=== PATIENT | female | born 1940 | race Caucasian/White ===

== ENCOUNTER 2017-04-27 08:13 | Emergency (ER) | payer MEDICARE, BC ==
[2017-04-27] MEDS ORDERED: Sodium Chloride 0.9% 10 ML Syringe FLUSH PRN (08:27)
[2017-04-27] MEDS ORDERED: Sodium Chloride 0.9% 2.5 ML Syringe FLUSH PRN (08:27)
[2017-04-27] MEDS ORDERED: Ondansetron 4 MG/2 ML SDV IVPUSH ONE (08:28)
[2017-04-27] MEDS ORDERED: Morphine 2 MG/ML Syringe IVPUSH ONE (08:28)
--- NOTE | 2017-04-27 08:39 | EDM.PDOC ---
ED HPI GENERAL MEDICAL PROBLEM - General Chief Complaint: Lower Extremity Injury/Pain Stated Complaint: ALL OVER PAIN Time Seen by Provider: 04/27/17 08:20 Source of Information: Reports: Patient History Limitations: Reports: No Limitations - History of Present Illness INITIAL COMMENTS - FREE TEXT/NARRATIVE: History of present illness: []Patient was sitting in a recliner chair and pushed back to recline further and felt sudden pain in her right hip. She denies any previous hip surgery or feeling any pop prior to the pain. Patient also denies any numbness or tingling , low back pain or any other injuries. Review of systems: As per history of present illness and below otherwise all systems reviewed and negative. Past medical history: As per history of present illness and as reviewed below otherwise noncontributory. Surgical history: As per history of present illness and as reviewed below otherwise noncontributory. Social history: No reported history of drug or alcohol abuse. Family history: As per history of present illness and as reviewed below otherwise noncontributory. Physical exam: General: Well developed, well nourished in NAD HEENT: Atraumatic, normocephalic, pupils reactive, negative for conjunctival pallor or scleral icterus, mucous membranes moist, throat clear, neck supple, nontender, trachea midline. Lungs: Clear to auscultation, breath sounds equal bilaterally, chest nontender. Heart: S1S2, regular, negative for clicks, rubs, or JVD. Abdomen: Soft, nondistended, nontender. Negative for masses or hepatosplenomegaly. Negative for costovertebral tenderness. Pelvis: Stable nontender. Genitourinary: Deferred. Rectal: Deferred. Extremities: Atraumatic, negative for cords or calf pain. Neurovascular unremarkable. Neuro: Awake, alert, oriented. Cranial nerves II through XII unremarkable. Cerebellum unremarkable. Motor and sensory unremarkable throughout. Exam nonfocal. Diagnostics: []Pelvis and right hip x-ray negative for fracture Therapeutics: []Pain meds given Impression: []Right hip strain Plan: []Flexeril and tramadol follow-up with PMD ice and/or heat to hip return to ER if symptoms worsen or change Definitive disposition and diagnosis as appropriate pending reevaluation and review of above. Right Hip Pain Score (Numeric/FACES): 10 - Related Data Allergies Allergy/AdvReac Type Severity Reaction Status Date / Time Sulfa (Sulfonamide Allergy Hives Verified 04/27/17 08:25 Antibiotics) Home Meds: Home Meds Cyclobenzaprine [Flexeril] 10 mg PO BID PRN #16 tablet 04/27/17 [Rx] Furosemide [Lasix] 20 mg PO DAILY 04/27/17 [History] Metoprolol Succinate [Toprol XL] 150 mg PO DAILY 04/27/17 [History] Rivaroxaban [Xarelto] 20 mg PO DAILY 04/27/17 [History] traMADol [Ultram] 50 mg PO Q8H PRN #18 tablet 04/27/17 [Rx] Past Medical History Cardiovascular History: Reports: Afib, Hypertension - Infectious Disease History Infectious Disease History: Reports: Chicken Pox, Measles, Mumps - Past Surgical History HEENT Surgical History: Reports: Other (See Below) Other HEENT Surgeries/Procedures: eye surgery GI Surgical History: Reports: Bariatric Procedure Social & Family History - Family History Family Medical History: Noncontributory - Tobacco Use Smoking Status *Q: Never Smoker - Recreational Drug Use Recreational Drug Use: No Review of Systems - Review of Systems Review Of Systems: See Below (See history of present illness) ED EXAM, GENERAL - Physical Exam Exam: See Below (See history of present illness) Course - Vital Signs Last Recorded V/S: Last Vital Signs Temp 36.4 C 04/27/17 09:40 Pulse 79 04/27/17 11:02 Resp 18 04/27/17 11:02 BP 123/78 04/27/17 11:02 Pulse Ox 91 L 04/27/17 11:02 - Orders/Labs/Meds Orders: Active Orders 24 hr Category Date Time Status Sodium Chloride 0.9% [Saline Flush] Med 04/27/17 08:27 Active 10 ml FLUSH ASDIRECTED PRN Sodium Chloride 0.9% [Saline Flush] Med 04/27/17 08:27 Active 2.5 ml FLUSH ASDIRECTED PRN Saline Lock Insert [OM.PC] Stat Oth 04/27/17 08:27 Ordered Medication Orders Sodium Chloride (Saline Flush) 10 ml FLUSH ASDIRECTED PRN PRN Reason: Keep Vein Open Last Admin: 04/27/17 08:46 Dose: 10 ml Sodium Chloride (Saline Flush) 2.5 ml FLUSH ASDIRECTED PRN PRN Reason: Keep Vein Open Last Admin: 04/27/17 08:46 Dose: 2.5 ml Meds: Medications Generic Name Dose Route Start Last Admin Trade Name Freraul PRN Reason Stop Dose Admin Sodium Chloride 10 ml 04/27/17 08:27 04/27/17 08:46 Saline Flush FLUSH 10 ml ASDIRECTED PRN Administration Keep Vein Open Sodium Chloride 2.5 ml 04/27/17 08:27 04/27/17 08:46 Saline Flush FLUSH 2.5 ml ASDIRECTED PRN Administration Keep Vein Open Discontinued Medications Generic Name Dose Route Start Last Admin Trade Name Freq PRN Reason Stop Dose Admin Hydromorphone HCl 0.5 mg 04/27/17 09:06 04/27/17 09:12 Dilaudid IVPUSH 04/27/17 09:07 0.5 mg ONETIME ONE Administration Hydromorphone HCl 0.5 mg 04/27/17 09:33 04/27/17 09:43 Dilaudid IVPUSH 04/27/17 09:34 0.5 mg ONETIME ONE Administration Morphine Sulfate 4 mg 04/27/17 08:28 04/27/17 08:47 Morphine IVPUSH 04/27/17 08:29 4 mg ONETIME ONE Administration Ondansetron HCl 4 mg 04/27/17 08:28 04/27/17 08:46 Zofran IVPUSH 04/27/17 08:29 4 mg ONETIME ONE Administration Departure - Departure Time of Disposition: 11:17 Disposition: Home, Self-Care 01 Condition: Good Clinical Impression: Strain of right hip Qualifiers: Encounter type: initial encounter Qualified Code(s): S76.011A - Strain of muscle, fascia and tendon of right hip, initial encounter - Discharge Information Prescriptions: Cyclobenzaprine [Flexeril] 10 mg PO BID PRN #16 tablet PRN Reason: Pain traMADol [Ultram] 50 mg PO Q8H PRN #18 tablet PRN Reason: Pain Referrals: PCP,Unknown [Primary Care Provider] - Forms: ED Department Discharge Additional Instructions: The following information is given to patients seen in the emergency department who are being discharged to home. This information is to outline your options for follow-up care. We provide all patients seen in our emergency department with a follow-up referral. The need for follow-up, as well as the timing and circumstances, are variable depending upon the specifics of your emergency department visit. If you don't have a primary care physician on staff, we will provide you with a referral. We always advise you to contact your personal physician following an emergency department visit to inform them of the circumstance of the visit and for follow-up with them and/or the need for any referrals to a consulting specialist. The emergency department will also refer you to a specialist when appropriate. This referral assures that you have the opportunity for follow-up care with a specialist. All of these measure are taken in an effort to provide you with optimal care, which includes your follow-up. Under all circumstances we always encourage you to contact your private physician who remains a resource for coordinating your care. When calling for follow-up care, please make the office aware that this follow-up is from your recent emergency room visit. If for any reason you are refused follow-up, please contact the [facility] Emergency Department at and asked to speak to the emergency department charge nurse. Tramadol Flexeril as directed follow-up with PMD return if symptoms worsen or change [facility] [address] [place] [address] - My Orders Last 24 Hours: My Active Orders 04/27/17 08:27 Sodium Chloride 0.9% [Saline Flush] 10 ml FLUSH ASDIRECTED PRN Sodium Chloride 0.9% [Saline Flush] 2.5 ml FLUSH ASDIRECTED PRN Saline Lock Insert [OM.PC] Stat - Assessment/Plan Last 24 Hours: My Active Orders 04/27/17 08:27 Sodium Chloride 0.9% [Saline Flush] 10 ml FLUSH ASDIRECTED PRN Sodium Chloride 0.9% [Saline Flush] 2.5 ml FLUSH ASDIRECTED PRN Saline Lock Insert [OM.PC] Stat
[2017-04-27] MEDS ORDERED: HYDROmorphone 2 MG/ML Syringe IVPUSH ONE ×2 (09:06→09:33)
--- NOTE | 2017-04-27 11:03 | CR ---
EXAMINATION: Pelvis and right hip HISTORY: Pain COMPARISON: None TECHNIQUE: AP pelvis and 2 views of the right hip FINDINGS: There is no acute osseous abnormality, dislocation, or fracture. Severe joint space narrowi ng is noted within the hips bilaterally. Subchondral cystic change, sclerosis and prominent osteophyt e formation is noted within the left hip and less so within the right hip. Iliopectineal lines are in tact SI joints are symmetric. IMPRESSION: 1. 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
[2017-04-27] MEDS ORDERED: Cyclobenzaprine 10 MG Tab PO ONE (11:21)
[2017-04-27 11:33] VITALS: BP 143/76
== END 2017-04-27 11:59 | disposition home or self-care (01) ==
LOC: MW.ED 08:13
DX: S76.011A Strain of muscle, fascia and tendon of right hip, initial encounter (principal); I10 Essential (primary) hypertension; Z88.2 Allergy status to sulfonamides; Z79.899 Other long term (current) drug therapy; X50.1XXA Overexertion from prolonged static or awkward postures, initial encounter
CPT/HCPCS: 73502; 96374; 96375; 99284; A9270; J1170; J2270; J2405; 99283

== ENCOUNTER 2018-11-07 14:53 | Emergency (ER) | payer MEDICARE, BC ==
[2018-11-07] MEDS ORDERED: Ondansetron 4 MG/2 ML SDV IVPUSH ONE (15:15)
[2018-11-07] MEDS ORDERED: Sodium Chloride 0.9% 1,000 ML IV ONE (15:15)
--- NOTE | 2018-11-07 15:18 | EDM.PDOC ---
ED [facility] GENERAL MEDICAL PROBLEM - General Chief Complaint: Genitourinary Problem Stated Complaint: kidney stone Time Seen by Provider: 11/07/18 15:01 Source of Information: Reports: Patient History Limitations: Reports: No Limitations - History of Present Illness INITIAL COMMENTS - FREE TEXT/NARRATIVE: HISTORY AND PHYSICAL: History of present illness: Patient is a 78-year-old female presents to the ED today with concern for potential kidney stone. Patient states starting yesterday she started having left-sided back pain that radiates to the front. Patient states she has a history of kidney stones and that the pain feels similar to her prior stones. Patient states she's also had urinary frequency but when she is to the bathroom feels like she cannot urinate. She denies burning or pain with urination. Patient expresses some nausea but no vomiting. Patient states the pain comes in "waves." Currently upon interview, patient denies any pain but states that it comes and goes and is currently isn't active. Patient denies fever, chills, chest pain, shortness of breath, or cough. Denies headache, neck stiff ness, change in vision, syncope, or near syncope. Denies vomiting, diarrhea, constipation, or dysuria. Has not noted any blood in urine or stool. Patient has been eating and drinking appropriately. Patient has a history of atrial fibrillation and hypertension. Review of systems: As per history of present illness and below otherwise all systems reviewed and negative. Past medical history: As per history of present illness and as reviewed below otherwise noncontributory. Surgical history: As per history of present illness and as reviewed below otherwise noncontributory. Social history: See social history for further information Family history: As per history of present illness and as reviewed below otherwise noncontributory. Physical exam: Exam is limited due to body habitus. General: Patient is alert, oriented, and in no acute distress. Patient sitting comfortably on exam table. HEENT: Atraumatic, normocephalic, pupils equal and reactive bilaterally, negative for conjunctival pallor or scleral icterus, mucous membranes moist, TMs normal bilaterally, throat clear, neck supple, nontender, trachea midline. No drooling or trismus noted. No meningeal signs. No hot potato voice noted. Lungs: Clear to auscultation, breath sounds equal bilaterally, chest nontender. Heart: S1S2, irregularly irregular and rhythm without overt murmur Abdomen: Morbidly obese, Soft, nondistended, nontender. Negative for masses or hepatosplenomegaly. Negative for costovertebral tenderness. Pelvis: Stable nontender. Genitourinary: Deferred. Rectal: Deferred. Skin: Intact, warm, dry. No lesions or rashes noted. Extremities: Atraumatic, negative for cords or calf pain. Neurovascular unremarkable. Brawny appearance to the bilateral legs from ankle to mid tibia which patient states as per her baseline. Dorsalis pedis and posterior tibial pulses grossly intact bilaterally. Neuro: Awake, alert, oriented. Cranial nerves II through XII unremarkable. Cerebellum unremarkable. Motor and sensory unremarkable throughout. Exam nonfocal. Notes: Dr. Guzman verbally involved in patient care. Voices understanding and is agreeable to plan of care. Denies any further questions or concerns at this time. Diagnostics: CBC, CMP, lipase, UA, EKG, abdominal pelvic CT without contrast Therapeutics: Zofran, saline, rocephin Prescription: Flomax, [place] #20, macrobid Impression: Left ureterolithiasis Left renal calculi Distended gallbladder Plan: 1. Take medications as prescribed. You can also alternate ibuprofen and Tylenol as directed for pain and discomfort. 2. Follow-up with your primary care provider and urologist as discussed. 3. Return to the ED as needed and as discussed. Definitive disposition and diagnosis as appropriate pending reevaluation and review of above. left flank Pain Score (Numeric/FACES): 6 - Related Data Allergies Allergy/AdvReac Type Severity Reaction Status Date / Time Sulfa (Sulfonamide Allergy Hives Verified 11/07/18 15:00 Antibiotics) Home Meds: Home Meds Furosemide 1 tab PO DAILY 11/07/18 [History] Metoprolol Succinate [Toprol Xl] 150 mg PO DAILY 11/07/18 [History] Rivaroxaban [Xarelto] 20 mg PO DAILY 11/07/18 [History] Past Medical History Cardiovascular History: Reports: Afib, Hypertension - Infectious Disease History Infectious Disease History: Reports: Chicken Pox, Measles, Mumps - Past Surgical History HEENT Surgical History: Reports: Other (See Below) Other HEENT Surgeries/Procedures: eye surgery GI Surgical History: Reports: Bariatric Procedure Social & Family History - Family History Family Medical History: Noncontributory - Tobacco Use Smoking Status *Q: Never Smoker - Recreational Drug Use Recreational Drug Use: No ED ROS GENERAL - Review of Systems Review Of Systems: ROS reveals no pertinent complaints other than HPI. ED EXAM, RENAL/ - Physical Exam Exam: See Below (See dictation) Course - Vital Signs Last Recorded V/S: Last Vital Signs Temp 36.1 C 11/07/18 15:00 Pulse 80 11/07/18 15:00 Resp 18 11/07/18 15:00 BP 136/78 11/07/18 16:16 Pulse Ox 95 11/07/18 15:00 - Orders/Labs/Meds Orders: Active Orders 24 hr Category Date Time Status EKG Documentation Completion [RC] STAT Care 11/07/18 15:16 Active CULTURE URINE [RM] Stat Lab 11/07/18 16:05 Received cefTRIAXone [Rocephin in Dextrose,Iso-Osm 1 GM/50 ML] 1 Med 11/07/18 17:04 Ordered gm Premix Bag 1 bag IV ONETIME Medication Orders Ceftriaxone Sodium/Dextrose 1 (gm/ Premix) 50 mls @ 100 mls/hr IV ONETIME ONE Stop: 11/07/18 17:33 Labs: Laboratory Tests 11/07/18 11/07/18 11/07/18 Range/Units 15:21 15:21 16:05 WBC 9.39 (4.0-11.0) K/uL RBC 4.38 (4.30-5.90) M/uL Hgb 13.5 (12.0-16.0) g/dL Hct 42.3 (36.0-46.0) % MCV 96.6 (80.0-98.0) fL MCH 30.8 (27.0-32.0) pg MCHC 31.9 (31.0-37.0) g/dL RDW Std Deviation 48.1 (28.0-62.0) fl RDW Coeff of Elvia 14 (11.0-15.0) % Plt Count 210 (150-400) K/uL MPV 10.20 (7.40-12.00) fL Neut % (Auto) 87.5 H (48.0-80.0) % Lymph % (Auto) 7.1 L (16.0-40.0) % Thurston % (Auto) 4.9 (0.0-15.0) % Eos % (Auto) 0.3 (0.0-7.0) % Baso % (Auto) 0.2 (0.0-1.5) % Neut # (Auto) 8.2 H (1.4-5.7) K/uL Lymph # (Auto) 0.7 (0.6-2.4) K/uL Thurston # (Auto) 0.5 (0.0-0.8) K/uL Eos # (Auto) 0.0 (0.0-0.7) K/uL Baso # (Auto) 0.0 (0.0-0.1) K/uL Nucleated RBC % 0.0 /100WBC Nucleated RBCs # 0 K/uL Sodium 139 (136-145) mmol/L Potassium 4.0 (3.5-5.1) mmol/L Chloride 102 (98-107) mmol/L Carbon Dioxide 25.8 (21.0-32.0) mmol/L BUN 25 H (7.0-18.0) mg/dL Creatinine 1.0 (0.6-1.0) mg/dL Est Cr Clr Drug Dosing 43.07 mL/min Estimated GFR (MDRD) 53.9 ml/min Glucose 153 H (74-106) mg/dL Calcium 9.2 (8.5-10.1) mg/dL Total Bilirubin 0.6 (0.2-1.0) mg/dL AST 15 (15-37) IU/L ALT 18 (14-63) IU/L Alkaline Phosphatase 93 (46-116) U/L Total Protein 7.4 (6.4-8.2) g/dL Albumin 4.0 (3.4-5.0) g/dL Globulin 3.4 (2.6-4.0) g/dL Albumin/Globulin Ratio 1.2 (0.9-1.6) Lipase 74 (73-393) U/L Urine Color YELLOW Urine Appearance SLT CLOUDY Urine pH 5.0 (5.0-8.0) Ur Specific [place] >= 1.030 (1.001-1.035) Urine Protein NEGATIVE (NEGATIVE) mg/dL Urine Glucose (UA) NEGATIVE (NEGATIVE) mg/dL Urine Ketones 40 H (NEGATIVE) mg/dL Urine Occult Blood LARGE H (NEGATIVE) Urine Nitrite NEGATIVE (NEGATIVE) Urine Bilirubin NEGATIVE (NEGATIVE) Urine Urobilinogen 0.2 (<2.0) EU/dL Ur Leukocyte Esterase TRACE H (NEGATIVE) Urine RBC 40-60 (0-2/HPF) Urine WBC 3-5 (0-5/HPF) Ur Epithelial Cells FEW (NONE-FEW) Urine Bacteria FEW (NEGATIVE) Meds: Medications Generic Name Dose Route Start Last Admin Trade Name Freq PRN Reason Stop Dose Admin Ceftriaxone Sodium/Dextrose 1 50 mls @ 100 mls/hr 11/07/18 17:04 gm/ Premix IV 11/07/18 17:33 ONETIME ONE Discontinued Medications Generic Name Dose Route Start Last Admin Trade Name Freq PRN Reason Stop Dose Admin Sodium Chloride 1,000 mls @ 999 mls/hr 11/07/18 15:15 11/07/18 15:33 Normal Saline IV 11/07/18 16:15 999 mls/hr BOLUS ONE Administration Ondansetron HCl 4 mg 11/07/18 15:15 11/07/18 15:34 Zofran IVPUSH 11/07/18 15:16 4 mg ONETIME ONE Administration Departure - Departure Time of Disposition: 17:12 Disposition: Home, Self-Care 01 Clinical Impression: Ureterolithiasis, Renal calculi - Discharge Information Instructions: Kidney Stones, [id number] Referrals: PCP,Unknown [Primary Care Provider] - Forms: ED Department Discharge Additional Instructions: The following information is given to patients seen in the emergency department who are being discharged to home. This information is to outline your options for follow-up care. We provide all patients seen in our emergency department with a follow-up referral. The need for follow-up, as well as the timing and circumstances, are variable depending upon the specifics of your emergency department visit. If you don't have a primary care physician on staff, we will provide you with a referral. We always advise you to contact your personal physician following an emergency department visit to inform them of the circumstance of the visit and for follow-up with them and/or the need for any referrals to a consulting specialist. The emergency department will also refer you to a specialist when appropriate. This referral assures that you have the opportunity for follow-up care with a specialist. All of these measure are taken in an effort to provide you with optimal care, which includes your follow-up. Under all circumstances we always encourage you to contact your private physician who remains a resource for coordinating your care. When calling for follow-up care, please make the office aware that this follow-up is from your recent emergency room visit. If for any reason you are refused follow-up, please contact the Emergency Department at and asked to speak to the emergency department charge nurse. Primary Care [address] [place] [id number] [facility] [address] [place] [id number] [facility] [address] [place] [address] 1. Take medications as prescribed. You can also alternate ibuprofen and Tylenol as directed for pain and discomfort. 2. Follow-up with your primary care provider and urologist as discussed. 3. Return to the ED as needed and as discussed. - My Orders Last 24 Hours: My Active Orders 11/07/18 15:16 EKG Documentation Completion [RC] STAT 11/07/18 16:05 CULTURE URINE [RM] Stat 11/07/18 17:04 cefTRIAXone [Rocephin in Dextrose,Iso-Osm 1 GM/50 ML] 1 gm Premix Bag 1 bag IV ONETIME - Assessment/Plan Last 24 Hours: My Active Orders 11/07/18 15:16 EKG Documentation Completion [RC] STAT 11/07/18 16:05 CULTURE URINE [RM] Stat 11/07/18 17:04 cefTRIAXone [Rocephin in Dextrose,Iso-Osm 1 GM/50 ML] 1 gm Premix Bag 1 bag IV ONETIME
--- NOTE | 2018-11-07 16:51 | CT ---
HISTORY: Left-sided abdominal pain. TECHNIQUE: Noncontrast CT abdomen and pelvis. COMPARISON: No prior. FINDINGS: There are a few fluid density hepatic lesions which are incompletely characterized though may represent cysts. Gallbladder appears mildly distended. Gallbladder would be more optimally evaluated by ultrasound if the patient has symptoms referable to the gallbladder. There is a low-density splenic lesion which is incompletely characterized. Note that the majority of splenic lesions are benign. Adrenal glands are normal. No focal pancreatic abnormality. - There is a punctate intrarenal calculus within the left kidney superiorly, best seen on the coronal images, measuring approximately 2-3 mm in size. Mild dilatation of the left renal collecting system. The distal left ureter is difficult follow though there is a 5 mm calcification along the left posterior aspect of the urinary bladder present along the expected course of the distal most left ureter which may reflect a ureteral calculus. No right-sided renal or ureteral calculus. Minimal perinephric stranding. Urinary bladder is relatively nondistended. Other pelvic calcifications are likely phleboliths. - There is a gastric lap band in place. There is no small bowel obstruction. Colonic diverticulosis without acute diverticulitis. No abdominal aortic aneurysm. No fluid collection or free air. - Scoliosis. Degenerative changes of the spine. Degenerative changes of the hips. - Mild atelectasis or scarring within the lung bases. IMPRESSION: 1. Mild dilatation of the left renal collecting system. The distal left ureter is difficult follow though there is a 5 mm calcification along the left posterior aspect of the urinary bladder present along the expected course of the distal most left ureter which may reflect a ureteral calculus. If clinical findings are equivocal, a CT urogram could be performed to better delineate the course of the distal left ureter. Additional 2-3 mm nonobstructive intrarenal calculus left kidney. 2. Mildly distended gallbladder. 3. Gastric lap band in place. 4. Colonic diverticulosis without diverticulitis. Dictated by Aj Chappell MD @ 11/07/2018 4:48:59 PM Please note that all CT scans at this facility use dose modulation, iterative reconstruction, and/or weight-based dosing when appropriate to reduce radiation dose to as low as reasonably achievable. Dictated by: Aj Chappell MD @ 11/07/2018 16:49:11 (Electronically Signed)
[2018-11-07] MEDS ORDERED: cefTRIAXone 1 GM in Premix Bag 1 BAG IV ONE (17:04)
[2018-11-07 18:13] VITALS: BP 144/72
== END 2018-11-07 18:11 | disposition home or self-care (01) ==
LOC: MW.ED 14:53
DX: N20.2 Calculus of kidney with calculus of ureter (principal); I48.91 Unspecified atrial fibrillation; I10 Essential (primary) hypertension; Z88.2 Allergy status to sulfonamides
CPT/HCPCS: 36415; 74176; 80053; 81001; 83690; 85025; 87086; 93005; 96361; 96365; 96375; 99284; J0696; J2405; J7040

== ENCOUNTER 2018-12-05 19:11 | Emergency (ER) | payer MEDICARE, BC ==
[2018-12-05] MEDS ORDERED: Bacitracin Oint 1 GM U/D Packet TOP ONE (19:23)
[2018-12-05] MEDS ORDERED: Diphtheria,Pertussis(Acell),Tetanus Vaccine 0.5 ML Syringe IM ONE (19:23)
[2018-12-05] MEDS ORDERED: Lidocaine 1% with EPINEPHrine 1:100,000 10 ML MDV INJECT ONE (19:23)
[2018-12-05] MEDS ORDERED: Lidocaine 1% with EPINEPHrine 1:100,000 20 ML MDV ONE (19:30)
--- NOTE | 2018-12-05 19:30 | EDM.PDOC ---
ED HPI GENERAL MEDICAL PROBLEM - General Chief Complaint: Lower Extremity Injury/Pain Stated Complaint: AMBULANCE Time Seen by Provider: 12/05/18 19:15 - History of Present Illness INITIAL COMMENTS - FREE TEXT/NARRATIVE: HISTORY AND PHYSICAL: History of present illness: The patient is a 78 y/o old female with a history of hypertension and chronic A. fib who is on Xarelto and follows with Dr. Aurelio Murillo at [facility] and presents with a laceration to her left lower leg that occurred when she caught the area on a car door getting out of a vehicle to go to the [facility]. Prior to these events she was in her usual state of good health with no systemic complaints and she did not hit the leg she just caught it on the edge of a car door and cut it. Because she is on Xarelto there was a lot of bleeding and she was concerned so ambulance was called and she was brought here for evaluation. She is not sure of her last tetanus shot she has no bony leg pain and actually has no discomfort at the site of the laceration but was only concerned about the bleeding. It is currently not bleeding. A dressing was placed by EMS. Review of systems: As per history of present illness and below otherwise all systems reviewed and negative. Past medical history: As per history of present illness and as reviewed below otherwise noncontributory. Surgical history: As per history of present illness and as reviewed below otherwise noncontributory. Social history: No reported history of drug or alcohol abuse. Family history: As per history of present illness and as reviewed below otherwise noncontributory. Physical exam: HEENT: Atraumatic, normocephalic, negative for conjunctival pallor or scleral icterus, mucous membranes moist, throat clear, neck supple, nontender, trachea midline. Lungs: Clear to auscultation, breath sounds equal bilaterally, chest nontender. Heart: S1S2, regular rate but irregularly irregular rhythm consistent with her A. fib, no overt murmurs, negative for clicks, rubs, or JVD. Abdomen: Soft, nondistended, nontender. Negative for masses or hepatosplenomegaly. NABS Pelvis: Stable nontender. Genitourinary: Deferred. Rectal: Deferred. Extremities: Atraumatic with full range of motion of all extremities and no palpable bony tenderness appreciated all with the exception of the lateral left lower extremity where there is an arrowhead-like laceration measuring 3 x 4 cm without any active bleeding. The laceration extends to the subcutaneous tissue and there is no soft tissue swelling in the surround or erythema and no tenderness, the legs are, negative for cords or calf pain. Neurovascular unremarkable. Neuro: Awake, alert, oriented. Cranial nerves II through XII unremarkable. Cerebellum unremarkable. Motor and sensory unremarkable throughout. Exam nonfocal. Diagnostics: [] Therapeutics: Wound cleansing, lidocaine with epinephrine for suturing, bacitracin and dressing per nursing Procedure note: After the wound was thoroughly cleansed by nursing it was explored and no foreign bodies were appreciated. 1% lidocaine with epinephrine was infused in the area and the skin edges were tacked down using simple interrupted sutures for a total number of # 7 of 4-0 nylon . There were no complications and the patient tolerated the procedure well. Bacitracin and a dressing was applied. The procedure was performed by Lucille Andres the nurse practitioner Impression: Laceration to left lower extremity, history of chronic Xarelto use stable Definitive disposition and diagnosis as appropriate pending reevaluation and review of above. - Related Data Allergies Allergy/AdvReac Type Severity Reaction Status Date / Time Sulfa (Sulfonamide Allergy Hives Verified 12/05/18 19:14 Antibiotics) Home Meds: Home Meds Furosemide 1 tab PO DAILY 11/07/18 [History] Metoprolol Succinate [Toprol Xl] 150 mg PO DAILY 11/07/18 [History] Rivaroxaban [Xarelto] 20 mg PO DAILY 11/07/18 [History] Past Medical History Cardiovascular History: Reports: Afib, Hypertension - Infectious Disease History Infectious Disease History: Reports: Chicken Pox - Past Surgical History HEENT Surgical History: Reports: Other (See Below) Other HEENT Surgeries/Procedures: eye surgery GI Surgical History: Reports: Bariatric Procedure Social & Family History - Family History Family Medical History: Noncontributory - Tobacco Use Smoking Status *Q: Never Smoker - Caffeine Use Caffeine Use: Reports: Coffee, Tea - Recreational Drug Use Recreational Drug Use: No Review of Systems - Review of Systems Review Of Systems: ROS reveals no pertinent complaints other than HPI. ED EXAM, GENERAL - Physical Exam Exam: See Below (See dictation) Course - Vital Signs Last Recorded V/S: Last Vital Signs Temp 36.4 C 12/05/18 19:14 Pulse 94 12/05/18 19:14 Resp 17 12/05/18 19:14 BP 153/83 H 12/05/18 19:14 Pulse Ox 97 12/05/18 19:14 - Orders/Labs/Meds Orders: Active Orders 24 hr Category Date Time Status Communication Order [RC] STAT Care 12/05/18 19:24 Active Vaccines to be Administered [RC] PER UNIT ROUTINE Care 12/05/18 19:24 Active Meds: Medications Discontinued Medications Generic Name Dose Route Start Last Admin Trade Name Evelyne PRN Reason Stop Dose Admin Bacitracin 1 dose 12/05/18 19:23 12/05/18 19:37 Bacitracin Oint 1 Gm TOP 12/05/18 19:24 1 dose ONETIME ONE Administration Diphtheria/Tetanus/Acell Pertussis 0.5 ml 12/05/18 19:23 12/05/18 19:37 Adacel IM 12/05/18 19:24 0.5 ml .ONCE ONE Administration Lidocaine/Epinephrine 10 ml 12/05/18 19:23 12/05/18 19:36 Xylocaine 1% With Epinephrine 1:100,000 INJECT 12/05/18 19:24 10 ml ONETIME ONE Administration Lidocaine/Epinephrine Confirm 12/05/18 19:30 12/05/18 19:39 Xylocaine 1% With Epinephrine 1:100,000 Administered 12/05/18 19:31 Not Given Dose 20 ml .ROUTE .STK-MED ONE Departure - Departure Time of Disposition: 19:52 Disposition: Home, Self-Care 01 Condition: Good Clinical Impression: Laceration of left leg Qualifiers: Encounter type: initial encounter Qualified Code(s): S81.812A - Laceration without foreign body, left lower leg, initial encounter - Discharge Information Referrals: PCP,None [Primary Care Provider] - Forms: ED Department Discharge Additional Instructions: The following information is given to patients seen in the emergency department who are being discharged to home. This information is to outline your options for follow-up care. We provide all patients seen in our emergency department with a follow-up referral. The need for follow-up, as well as the timing and circumstances, are variable depending upon the specifics of your emergency department visit. If you don't have a primary care physician on staff, we will provide you with a referral. We always advise you to contact your personal physician following an emergency department visit to inform them of the circumstance of the visit and for follow-up with them and/or the need for any referrals to a consulting specialist. The emergency department will also refer you to a specialist when appropriate. This referral assures that you have the opportunity for followup care with a specialist. All of these measure are taken in an effort to provide you with optimal care, which includes your followup. Under all circumstances we always encourage you to contact your private physician who remains a resource for coordinating your care. When calling for followup care, please make the office aware that this follow-up is from your recent emergency room visit. If for any reason you are refused follow-up, please contact the [facility] emergency department at and ask to speak to the emergency department charge nurse. [address] [place] [address] Keep the area clean and dry and remove dressing placed in the ED tomorrow afternoon. Cleanse area with mild soap and water pat dry and apply bacitracin or Neosporin. Please do not use Band-Aids as this will trap moisture and cause the wound to delay healing. Try to keep open to air and if you need to cover please use a nonstick or gauze dressing. Sutures can be removed and 7-10 days either here in the emergency department with a provider in the clinic. Continue all home medications and if any bleeding occurs please place pressure on the area and elevate. Return to ER as needed and as discussed. - My Orders Last 24 Hours: My Active Orders 12/05/18 19:24 Communication Order [RC] STAT Vaccines to be Administered [RC] PER UNIT ROUTINE - Assessment/Plan Last 24 Hours: My Active Orders 12/05/18 19:24 Communication Order [RC] STAT Vaccines to be Administered [RC] PER UNIT ROUTINE
[2018-12-05 20:11] VITALS: BP 133/84
== END 2018-12-05 20:11 | disposition home or self-care (01) ==
LOC: MW.ED 19:11
DX: S81.812A Laceration without foreign body, left lower leg, initial encounter (principal); Z23 Encounter for immunization; I10 Essential (primary) hypertension; I48.91 Unspecified atrial fibrillation; Z79.899 Other long term (current) drug therapy; Z88.2 Allergy status to sulfonamides; W23.0XXA Caught, crushed, jammed, or pinched between moving objects, initial encounter
CPT/HCPCS: 90471; 90715; 99283

== ENCOUNTER 2018-12-17 14:54 | Emergency (ER) | payer MEDICARE, BC ==
[2018-12-17 15:20] VITALS: BP 132/102
== END 2018-12-17 15:25 | disposition left against medical advice (07) ==
LOC: MW.ED 14:54
DX: Z53.21 Procedure and treatment not carried out due to patient leaving prior to being seen by health care provider (principal)

== ENCOUNTER 2019-01-06 09:29 | Emergency (ER) | payer MEDICARE, BC ==
--- NOTE | 2019-01-06 09:53 | EDM.PDOC ---
<Tonja Guzman - Last Filed: 01/06/19 10:48> ED HPI GENERAL MEDICAL PROBLEM - General Chief Complaint: Wound Recheck Stated Complaint: STITCHES OOZING ON LEFT LEG Time Seen by Provider: 01/06/19 09:50 - History of Present Illness INITIAL COMMENTS - FREE TEXT/NARRATIVE: This is Dr. Guzman dictating an addendum note as I am the supervising physician on this case. I agree with history and physical as above and the patient has chronic lower extremity swelling and when the sutures removed if there was some question about some separation and Steri-Strips were placed. The patient says the Steri-Strips did not fall off as she was told that she did not follow-up with Dr. Edwards her provider or come back to the ED. She is concerned about some surrounding erythema and some smell and drainage from the wound site. She has no systemic complaints of fevers and actually says that the area is not painful nor to she have any new swelling of that leg or calf tenderness. On physical exam there is an open area of nonhealing wound approximately the size of a large walnut with fibrinous material with a foul smell. There is surrounding erythema but there is no streaking up the leg and there is no discrete calf tenderness or swelling. There is no crepitus on palpation nor is there any bony deformities. Throughout the exam the patient is pain-free and only when we started to gently scrub the area or push on the area did she have any discomfort. She did not request anything for pain. After we did some gentle saline cleansing of the area and gentle scrubbing of the area of the fibrinous material easily lifted and the smell improved significantly. There is good clean tissue seen now in the wound area and there is no ronen bleeding. We will do workup as described above including CBC CMP and an x-ray. The patient has been told that she needs to go on antibiotics and she will need to follow-up with Dr. Edwards to follow the progress of this wound healing and we will instruct her on how to do wet-to-dry dressings. - Related Data Allergies Allergy/AdvReac Type Severity Reaction Status Date / Time Sulfa (Sulfonamide Allergy Hives Verified 12/17/18 15:17 Antibiotics) Home Meds: Home Meds Furosemide 1 tab PO DAILY 11/07/18 [History] Metoprolol Succinate [Toprol Xl] 150 mg PO DAILY 11/07/18 [History] Rivaroxaban [Xarelto] 20 mg PO DAILY 11/07/18 [History] ED ROS GENERAL - Review of Systems Review Of Systems: ROS reveals no pertinent complaints other than HPI. ED EXAM, SKIN/RASH Exam: See Below (See dictation) Course - Vital Signs Last Recorded V/S: Last Vital Signs Temp 36.2 C 01/06/19 09:37 Pulse 98 01/06/19 09:37 Resp 18 01/06/19 09:37 BP 168/91 H 01/06/19 09:37 Pulse Ox 96 01/06/19 09:37 - Orders/Labs/Meds Orders: Active Orders 24 hr Category Date Time Status Tibia Fibula Lt [CR] Stat Exams 01/06/19 09:55 Taken Labs: Laboratory Tests 01/06/19 01/06/19 Range/Units 09:55 10:03 WBC 6.43 (4.0-11.0) K/uL RBC 4.19 L (4.30-5.90) M/uL Hgb 12.7 (12.0-16.0) g/dL Hct 39.8 (36.0-46.0) % MCV 95.0 (80.0-98.0) fL MCH 30.3 (27.0-32.0) pg MCHC 31.9 (31.0-37.0) g/dL RDW Std Deviation 47.6 (28.0-62.0) fl RDW Coeff of Elvia 14 (11.0-15.0) % Plt Count 237 (150-400) K/uL MPV 10.20 (7.40-12.00) fL Neut % (Auto) 69.3 (48.0-80.0) % Lymph % (Auto) 19.1 (16.0-40.0) % [place] % (Auto) 10.1 (0.0-15.0) % Eos % (Auto) 1.2 (0.0-7.0) % Baso % (Auto) 0.3 (0.0-1.5) % Neut # (Auto) 4.5 (1.4-5.7) K/uL Lymph # (Auto) 1.2 (0.6-2.4) K/uL [place] # (Auto) 0.7 (0.0-0.8) K/uL Eos # (Auto) 0.1 (0.0-0.7) K/uL Baso # (Auto) 0.0 (0.0-0.1) K/uL Nucleated RBC % 0.0 /100WBC Nucleated RBCs # 0 K/uL Sodium 141 (136-145) mmol/L Potassium 4.4 (3.5-5.1) mmol/L Chloride 105 (98-107) mmol/L Carbon Dioxide 26.9 (21.0-32.0) mmol/L BUN 19 H (7.0-18.0) mg/dL Creatinine 0.6 (0.6-1.0) mg/dL Est Cr Clr Drug Dosing 71.78 mL/min Estimated GFR (MDRD) > 60.0 ml/min Glucose 109 H (74-106) mg/dL Calcium 8.9 (8.5-10.1) mg/dL Total Bilirubin 0.5 (0.2-1.0) mg/dL AST 16 (15-37) IU/L ALT 17 (14-63) IU/L Alkaline Phosphatase 93 (46-116) U/L Total Protein 7.1 (6.4-8.2) g/dL Albumin 3.7 (3.4-5.0) g/dL Globulin 3.4 (2.6-4.0) g/dL Albumin/Globulin Ratio 1.1 (0.9-1.6) Departure - Departure Disposition: Home, Self-Care 01 Condition: Good Clinical Impression: Non-healing wound Cellulitis Qualifiers: Site of cellulitis: extremity Site of cellulitis of extremity: lower extremity Laterality: left Qualified Code(s): L03.116 - Cellulitis of left lower limb - Discharge Information Referrals: Aurelio Edwards MD [Primary Care Provider] - Forms: ED Department Discharge Additional Instructions: The following information is given to patients seen in the emergency department who are being discharged to home. This information is to outline your options for follow-up care. We provide all patients seen in our emergency department with a follow-up referral. The need for follow-up, as well as the timing and circumstances, are variable depending upon the specifics of your emergency department visit. If you don't have a primary care physician on staff, we will provide you with a referral. We always advise you to contact your personal physician following an emergency department visit to inform them of the circumstance of the visit and for follow-up with them and/or the need for any referrals to a consulting specialist. The emergency department will also refer you to a specialist when appropriate. This referral assures that you have the opportunity for followup care with a specialist. All of these measure are taken in an effort to provide you with optimal care, which includes your followup. Under all circumstances we always encourage you to contact your private physician who remains a resource for coordinating your care. When calling for followup care, please make the office aware that this follow-up is from your recent emergency room visit. If for any reason you are refused follow-up, please contact the [facility] emergency department at and ask to speak to the emergency department charge nurse. [address] [place] [address] Please contact and follow up with Dr. Aurelio Murillo in the clinic next week to reevaluate this wound. Please take the clindamycin you have been prescribed arrived as directed until it is finished. Do the wet-to-dry dressings as you have been showed by the nurse in the ED 2-3 times a day and try to avoid reinjuring the area. Return to ER as needed and asked - My Orders Last 24 Hours: My Active Orders 01/06/19 09:55 Tibia Fibula Lt [CR] Stat - Assessment/Plan Last 24 Hours: My Active Orders 01/06/19 09:55 Tibia Fibula Lt [CR] Stat <Jason Le - Last Filed: 01/06/19 10:50> ED HPI GENERAL MEDICAL PROBLEM - History of Present Illness INITIAL COMMENTS - FREE TEXT/NARRATIVE: 78 y/o female here for left wound check. Patient was recently seen in the ER in early December for a left lower extremity cut where she needed few sutures. She came back on 12/17/18 for suture removal and few steri strips were placed to help with would closure since patient has chronic lower extremity edema. She states that the steri strips have not come off and that she has noticed a foul smell from wound site. No bleeding but there is some discharge. Some erythema around wound, but non tender. Denies fevers, nausea, vomiting, abdominal pain, dysuria, diarrhea. Patient did not follow-up with her PCP. Allergic to Sulfa. Past Medical History Cardiovascular History: Reports: Afib, Hypertension - Infectious Disease History Infectious Disease History: Reports: Chicken Pox - Past Surgical History HEENT Surgical History: Reports: Other (See Below) Other HEENT Surgeries/Procedures: eye surgery GI Surgical History: Reports: Bariatric Procedure Social & Family History - Family History Family Medical History: Noncontributory - Tobacco Use Smoking Status *Q: Never Smoker - Caffeine Use Caffeine Use: Reports: Coffee - Recreational Drug Use Recreational Drug Use: No ED ROS GENERAL - Review of Systems Review Of Systems: ROS reveals no pertinent complaints other than HPI. ED EXAM, SKIN/RASH General Appearance: Alert, WD/WN, No Apparent Distress Respiratory/Chest: No Respiratory Distress, Lungs Clear Cardiovascular: Normal Peripheral Pulses, Regular Rate, Rhythm Extremities: Other (bilateral lower extremity edema. Left lower extremity has an malodorous area of superficial open wound. Non tender. No crepitus.) Neurological: Alert, Oriented Course - Vital Signs Text/Narrative:: tibia xray did not show any subcutaneous gas or bone involvement. - Orders/Labs/Meds Orders: Active Orders 24 hr Category Date Time Status Tibia Fibula Lt [CR] Stat Exams 01/06/19 09:55 Taken Labs: Laboratory Tests 01/06/19 01/06/19 Range/Units 09:55 10:03 WBC 6.43 (4.0-11.0) K/uL RBC 4.19 L (4.30-5.90) M/uL Hgb 12.7 (12.0-16.0) g/dL Hct 39.8 (36.0-46.0) % MCV 95.0 (80.0-98.0) fL MCH 30.3 (27.0-32.0) pg MCHC 31.9 (31.0-37.0) g/dL RDW Std Deviation 47.6 (28.0-62.0) fl RDW Coeff of Elvia 14 (11.0-15.0) % Plt Count 237 (150-400) K/uL MPV 10.20 (7.40-12.00) fL Neut % (Auto) 69.3 (48.0-80.0) % Lymph % (Auto) 19.1 (16.0-40.0) % [place] % (Auto) 10.1 (0.0-15.0) % Eos % (Auto) 1.2 (0.0-7.0) % Baso % (Auto) 0.3 (0.0-1.5) % Neut # (Auto) 4.5 (1.4-5.7) K/uL Lymph # (Auto) 1.2 (0.6-2.4) K/uL [place] # (Auto) 0.7 (0.0-0.8) K/uL Eos # (Auto) 0.1 (0.0-0.7) K/uL Baso # (Auto) 0.0 (0.0-0.1) K/uL Nucleated RBC % 0.0 /100WBC Nucleated RBCs # 0 K/uL Sodium 141 (136-145) mmol/L Potassium 4.4 (3.5-5.1) mmol/L Chloride 105 (98-107) mmol/L Carbon Dioxide 26.9 (21.0-32.0) mmol/L BUN 19 H (7.0-18.0) mg/dL Creatinine 0.6 (0.6-1.0) mg/dL Est Cr Clr Drug Dosing 71.78 mL/min Estimated GFR (MDRD) > 60.0 ml/min Glucose 109 H (74-106) mg/dL Calcium 8.9 (8.5-10.1) mg/dL Total Bilirubin 0.5 (0.2-1.0) mg/dL AST 16 (15-37) IU/L ALT 17 (14-63) IU/L Alkaline Phosphatase 93 (46-116) U/L Total Protein 7.1 (6.4-8.2) g/dL Albumin 3.7 (3.4-5.0) g/dL Globulin 3.4 (2.6-4.0) g/dL Albumin/Globulin Ratio 1.1 (0.9-1.6) Departure - Departure Time of Disposition: 10:50 - Discharge Information *PRESCRIPTION DRUG MONITORING PROGRAM REVIEWED*: Not Applicable *COPY OF PRESCRIPTION DRUG MONITORING REPORT IN PATIENT VLADIMIR: Not Applicable - My Orders Last 24 Hours: My Active Orders 01/06/19 09:55 Tibia Fibula Lt [CR] Stat - Assessment/Plan Last 24 Hours: My Active Orders 01/06/19 09:55 Tibia Fibula Lt [CR] Stat
[2019-01-06 10:32] LABS: CHLORIDE,CL 105 mmol/L (98-107); SODIUM,NA 141 mmol/L (136-145)
--- NOTE | 2019-01-06 10:57 | CR ---
INDICATION: Soft tissue wound. TECHNIQUE: Two views left tibia and fibula. Findings : Soft tissue wound noted anteriorly. No plain film evidence of osteomyelitis. No acute bony abnormality Impression: Soft tissue wound in the anterior lower leg. No plain film evidence of osteomyelitis. Dictated by Lizbeth Egan MD @ Jan 06 2019 10:54AM Signed by Dr. Lizbeth Egan @ Jan 06 2019 10:55AM
[2019-01-06 12:04] VITALS: BP 168/84
== END 2019-01-06 11:15 | disposition home or self-care (01) ==
LOC: MW.ED 09:29
DX: S81.802A Unspecified open wound, left lower leg, initial encounter (principal); L03.116 Cellulitis of left lower limb; Z79.899 Other long term (current) drug therapy; Z88.2 Allergy status to sulfonamides; X58.XXXA Exposure to other specified factors, initial encounter
CPT/HCPCS: 36415; 73590-26-LT; 73590-LT; 80053; 85025; 99283; 99283-25

== ENCOUNTER 2020-02-08 14:21 | Emergency (ER) | payer MEDICARE, BC ==
[2020-02-08] MEDS ORDERED: Oxymetazoline 0.05% Nasal Spray 15 ML Bottle NAS ONE (14:29)
--- NOTE | 2020-02-08 14:33 | EDM.PDOC ---
ED HPI GENERAL MEDICAL PROBLEM - General Chief Complaint: ENT Problem Stated Complaint: NOSE BLEED Time Seen by Provider: 02/08/20 14:24 - History of Present Illness INITIAL COMMENTS - FREE TEXT/NARRATIVE: History of present illness: Patient presents via EMS with a nosebleed. Patient states after lunch she started just bleeding from her nose there was no trauma no injury no predisposing factors although she has had some cracked dry lips for several days. She is on Xarelto for her atrial fibrillation is been no changes in dosage the nose would not stop bleeding at home so she finally called 911 no other concerns no other complaints today nothing seems to make it better after having a clamp placed by EMS it has improved but she is still bleeding somewhat. Review of systems: As per history of present illness and below otherwise all systems reviewed and negative. Past medical history: As per history of present illness and as reviewed below otherwise noncontributory. Surgical history: As per history of present illness and as reviewed below otherwise noncontributory. Social history: No reported history of drug or alcohol abuse. Family history: As per history of present illness and as reviewed below otherwise noncontributory. Physical exam: HEENT: Atraumatic, normocephalic, pupils reactive, negative for conjunctival pallor or scleral icterus, mucous membranes moist, throat clear, neck supple, nontender, trachea midline. There is a nasal clamp in place there is still some posterior pharyngeal bleeding on exam. Lungs: Clear to auscultation, breath sounds equal bilaterally, chest nontender. Heart: S1S2, regular, negative for clicks, rubs, or JVD. Abdomen: Soft, nondistended, nontender. Negative for masses or hepatosplenomegaly. Negative for costovertebral tenderness. Pelvis: Stable nontender. Genitourinary: Deferred. Rectal: Deferred. Extremities: Atraumatic, negative for cords or calf pain. Neurovascular unremarkable. Neuro: Awake, alert, oriented. Cranial nerves II through XII unremarkable. Cerebellum unremarkable. Motor and sensory unremarkable throughout. Exam nonfocal. Diagnostics: [] Therapeutics: [] Impression: [] Plan: Afrin spray direct pressure reassess the patient. [] Definitive disposition and diagnosis as appropriate pending reevaluation and review of above. - Related Data Allergies Allergy/AdvReac Type Severity Reaction Status Date / Time Sulfa (Sulfonamide Allergy Hives Verified 02/08/20 14:31 Antibiotics) Home Meds: Home Meds Metoprolol Succinate [Toprol Xl] 150 mg PO DAILY 11/07/18 [History] Rivaroxaban [Xarelto] 20 mg PO DAILY 11/07/18 [History] hydroCHLOROthiazide [Hydrochlorothiazide] 25 mg PO DAILY 02/08/20 [History] Past Medical History Cardiovascular History: Reports: Afib, Hypertension - Infectious Disease History Infectious Disease History: Reports: Chicken Pox - Past Surgical History HEENT Surgical History: Reports: Other (See Below) Other HEENT Surgeries/Procedures: eye surgery GI Surgical History: Reports: Bariatric Procedure Social & Family History - Family History Family Medical History: Noncontributory - Caffeine Use Caffeine Use: Reports: Coffee ED ROS GENERAL - Review of Systems Review Of Systems: See Below ED EXAM, GENERAL - Physical Exam Exam: See Below Course - Vital Signs Text/Narrative:: Patient was given several squirts of Afrin up each nostril and then placed under a direct pressure clamping device for 30 minutes. Patient was reassessed clamp was removed she was allowed to gargle with ice water and then she was examined. No active bleeding Patient was reassessed about 10 minutes later still no active bleeding instructions were given for first-aid for nosebleed at home instructions were given to coat the septum gently with Vaseline several times per day and especially prior to going to sleep with her CPAP. To the ED for further trouble with nosebleed if first-aid measures do not stop it. Otherwise follow-up with primary care Last Recorded V/S: Last Vital Signs Temp 36.4 C 02/08/20 14:27 Pulse 100 02/08/20 14:27 Resp 22 H 02/08/20 14:27 BP 168/99 H 02/08/20 14:27 Pulse Ox 97 02/08/20 14:27 - Orders/Labs/Meds Meds: Medications Discontinued Medications Generic Name Dose Route Start Last Admin Trade Name Freq PRN Reason Stop Dose Admin Oxymetazoline HCl 10 ml 02/08/20 14:29 02/08/20 14:37 Afrin Original 0.05% Nasal [place] BREE 02/08/20 14:30 1 dose ONETIME ONE Administration Departure - Departure Time of Disposition: 15:49 Disposition: Home, Self-Care 01 Condition: Good Clinical Impression: Epistaxis - Discharge Information *PRESCRIPTION DRUG MONITORING PROGRAM REVIEWED*: Not Applicable *COPY OF PRESCRIPTION DRUG MONITORING REPORT IN PATIENT VLADIMIR: Not Applicable Instructions: Nosebleed, Adult Forms: ED Department Discharge Additional Instructions: The following information is given to patients seen in the emergency department who are being discharged to home. This information is to outline your options for follow-up care. We provide all patients seen in our emergency department with a follow-up referral. The need for follow-up, as well as the timing and circumstances, are variable depending upon the specifics of your emergency department visit. If you don't have a primary care physician on staff, we will provide you with a referral. We always advise you to contact your personal physician following an emergency department visit to inform them of the circumstance of the visit and for follow-up with them and/or the need for any referrals to a consulting specialist. The emergency department will also refer you to a specialist when appropriate. This referral assures that you have the opportunity for follow-up care with a specialist. All of these measure are taken in an effort to provide you with optimal care, which includes your follow-up. Under all circumstances we always encourage you to contact your private physician who remains a resource for coordinating your care. When calling for follow-up care, please make the office aware that this follow-up is from your recent emergency room visit. If for any reason you are refused follow-up, please contact the [facility] Emergency Department at and asked to speak to the emergency department charge nurse. Sepsis Event Note (ED) - Evaluation Sepsis Screening Result: No Definite Risk - Focused Exam Vital Signs: Vital Signs Temp Pulse Resp BP Pulse Ox 02/08/20 14:27 36.4 C 100 22 H 168/99 H 97
[2020-02-08 14:38] VITALS: BP 168/99; PULSE 100
== END 2020-02-08 16:19 | disposition home or self-care (01) ==
LOC: MW.ED 14:21
DX: R04.0 Epistaxis (principal); I10 Essential (primary) hypertension; I48.91 Unspecified atrial fibrillation; Z88.2 Allergy status to sulfonamides; Z79.01 Long term (current) use of anticoagulants; Z79.899 Other long term (current) drug therapy
CPT/HCPCS: 99283; A9270

== ENCOUNTER 2025-05-27 08:40 | Emergency (ER) | payer MEDICARE, BC ==
[2025-05-27] MEDS ORDERED: Sodium Chloride 0.9% 2.5 ML Syringe FLUSH PRN (08:45)
[2025-05-27] MEDS ORDERED: Sodium Chloride 0.9% 10 ML Syringe FLUSH PRN (08:45)
[2025-05-27 09:45] LABS: BASOPHILS ABSOLUTE AUTO 0.03 K/uL (0.00-0.20); BASOPHILS PERCENT AUTO 0.4 % (0.0-1.0); EOSINOPHILS ABSOLUTE AUTO 0.14 K/uL (0.00-0.45); EOSINOPHILS PERCENT AUTO 1.7 % (0.0-6.0); IMMATURE GRAN ABSOLUTE AUTO 0.02 K/uL (0.00-0.05); IMMATURE GRAN PERCENT AUTO 0.2 % (0.0-0.4); LYMPHOCYTES ABSOLUTE AUTO 1.10 K/uL (1.00-4.80); LYMPHOCYTES PERCENT AUTO 13.2 % (24.0-44.0); MEAN PLATELET VOLUME 9.4 fL (9.4-12.3); MONOCYTES ABSOLUTE AUTO 1.07 K/uL (0.00-0.80); MONOCYTES PERCENT AUTO 12.8 % (0.0-8.0); NEUTROPHILS ABSOLUTE AUTO 5.97 K/uL (1.80-7.70); NEUTROPHILS PERCENT AUTO 71.7 % (41.0-71.0); NRBC ABSOLUTE 0.00 K/uL (0.00-0.02); NRBC PERCENT 0.0 /100WBC (0.0-0.2); PLATELET COUNT,PLT 322 K/uL (150-400); RED BLOOD CELL COUNT 3.66 M/uL (4.10-5.30); WHITE BLOOD CELL COUNT,WBC 8.33 K/uL (3.9-11.3)
[2025-05-27 09:53] LABS: INR 1.85 (0.86-1.11)
[2025-05-27 10:23] LABS: A/G RATIO 0.7 (0.9-1.6); ALANINE AMINOTRANSFERASE,ALT 9.0 IU/L (14-63); ASPARTATE AMNIOTRANSFERASE,AST 14.0 IU/L (15-37); BILIRUBIN TOTAL 1.3 mg/dL (0.2-1.0); BLOOD UREA NITROGEN,BUN 11.0 mg/dL (7.0-18.0); CARBON DIOXIDE,CO2 30.9 mmol/L (21.0-32.0); CHLORIDE,CL 99.0 mmol/L (98-107); CREATININE 0.5 mg/dL (0.6-1.0); EST CRCL DRUG DOSING (CG) 70.52 mL/min; GLUCOSE RANDOM 92.0 mg/dL (74-106); POTASSIUM,K 3.8 mmol/L (3.5-5.1); PRO B-TYPE NATRIUR PEPT,BNPPRO 1257.0 pg/mL (0-450); PROTEIN TOTAL,TP 6.7 g/dL (6.4-8.2); SODIUM,NA 137.0 mmol/L (136-145)
[2025-05-27 10:25] LABS: ESTIMATED GFR 93.0 mL/min (>60)
[2025-05-27] MEDS: Furosemide 40 MG/4 ML VIAL IVPUSH ONE (10:39)
[2025-05-27 10:47] LABS: IRON,FE 26.0 ug/dL (50-175); PERCENT FE SATURATION 12.15 % (20-55)
[2025-05-27 11:43] LABS: APPEARANCE,URINE CLEAR; GLUCOSE,URINE NEGATIVE (NEGATIVE); OCCULT BLOOD,URINE NEGATIVE (NEGATIVE)
[2025-05-27 12:48] VITALS: BP 149/90; PULSE 90
== END 2025-05-27 12:48 | disposition home or self-care (01) ==
LOC: MW.ED 08:40
DX: J01.90 Acute sinusitis, unspecified (principal); D50.9 Iron deficiency anemia, unspecified; M25.561 Pain in right knee; M25.562 Pain in left knee; I10 Essential (primary) hypertension; I48.91 Unspecified atrial fibrillation; Z88.2 Allergy status to sulfonamides; Z79.899 Other long term (current) drug therapy; Z79.01 Long term (current) use of anticoagulants
CPT/HCPCS: 36415; 71045; 80053; 81003; 83550; 83690; 83735; 83880; 84484; 85025; 85610; 87428; 93005; 96374; 99284; J1938; J8540; 93010